=== PATIENT | female | born 1980 | race Caucasian/White ===

== ENCOUNTER → 2021-10-23 09:10 | Outpatient (BNVA) | payer MEDICAID, SELFPAY | PROVIDERS: PCP Family Medicine; Visit Provider Family Medicine Adult Medicine | DX: B35.6 Tinea cruris (principal); R21 Rash and other nonspecific skin eruption | CPT/HCPCS: 87070; 87075; 87081; 87205 ==

== ENCOUNTER 2022-01-05 07:54 | Emergency (ER) | payer MEDICAID, SELFPAY ==
[2022-01-05 08:21] VITALS: BP 126/83; PULSE 73; RESP 16; TEMP 36.6; O2SAT 98; BMI 28.3
--- NOTE | 2022-01-05 08:24 | XR_ITS ---
WS: [id number] LEFT FOOT: 2 VIEW(S) TECHNIQUE: AP and lateral. HISTORY: L-foot injury. R/O FB COMPARISON: None available. No acute fracture or dislocation. Normal tarsal/metatarsal alignment. Extensive soft tissue edema surrounding the foot greatest around the metatarsals. No foreign body is identified and no soft tissue tract with air. XR/XR foot LT 2V [id number] IMPRESSION: 1. No radiopaque foreign body LEFT foot. 2. Large amount of soft tissue edema surrounding the LEFT foot.
--- NOTE | 2022-01-05 09:01 | W.ED.EXTPRO ---
HPI - Extremity Problem General: Chief complaint: Extremity Injury, Lower Stated complaint: left foot injury Time Seen by Provider: 01/05/22 07:56 Source: patient Mode of arrival: ambulatory Limitations: no limitations History of Present Illness: Patient is a 41-year-old female who presents to ED today with complaints of a plantar puncture wound that occurred 3 days ago after stepping on a piece of welding wire. Patient states over time foot has become increasingly sore and she has noticed a small amount of redness and swelling. Patient's tetanus is not up-to-date. MD Complaint: extremity pain and extremity swelling Onset (ago): day(s) Pain Consistency: constant Location: left and lower extremity Associated symptoms: Reports no associated symptoms; Deny fever(s) or rash Review of Systems Const: Denies: fever(s), chills, body aches, fatigue or malaise GI: Denies: nausea or vomiting Musc: Reports: extremity pain and extremity swelling; Denies: neck pain, back pain, joint pain or joint swelling Skin/Breast: Denies: rash Neuro: Denies: numbness in extremities, weakness in extremities or sensory changes PFSH ED PFSH: Medical History Rash in adult Tinea cruris Social History Smoking and tobacco status: never smoked Physical Exam Const: COMMON NORMALS: no acute distress, no limitations, alert and well nourished GENERAL APPEARANCE: cooperative ORIENTATION/CONSCIOUSNESS: Yes awake, Yes oriented to person, Yes oriented to place and Yes oriented to time Extremity: COMMON NORMALS: capillary refill normal, no joint enlargement and no calf tenderness GENERAL: Yes normal exam except as noted LEFT LOWER EXTREMITY: Yes foot & digits OTHER: pt does have a small amount of swelling/erythema to dorsal distal foot; no lymphangitic streaking; she has no swelling, drainage, erythema to plantar aspect of her foot or surrounding the puncture wound Feet Bottom: 1. very small 2mm puncture wound w/o swelling/drainage/erythema Neuro: COMMON NORMALS: moves all extremities, no focal motor deficits and no sensory deficits noted SENSORIUM/ORIENTATION: Yes alert, Yes oriented to person, Yes oriented to place and Yes oriented to time Skin: NARRATIVE SKIN EXAM: see diagram above Course Vital Signs: Vital signs: Vital Signs Temperature 97.9 F 01/05/22 08:21 Pulse Rate 73 01/05/22 08:21 Respiratory Rate 16 01/05/22 08:21 Blood Pressure 126/83 01/05/22 08:21 Pulse Oximetry 98 01/05/22 08:21 MDM - Extremity (Nontraumatic) Medical Decision Making XR negative. Tetanus updated. She was given IM Ancef prior to DC. Will place on cipro/keflex for pseudomonas/staph coverage. Recommend follow up with PCP. Return to ED precautions given. Lab Data Radiology Impressions Foot X-Ray 01/05/22 08:24 IMPRESSION: 1. No radiopaque foreign body LEFT foot. 2. Large amount of soft tissue edema surrounding the LEFT foot. Discharge Plan Discharge Patient Disposition: Home Clinical Impression: Cellulitis of left foot Puncture wound of foot Qualifiers: Encounter type: initial encounter Laterality: left Qualified Code(s): S91.332A - Puncture wound without foreign body, left foot, initial encounter Condition: Stable Prescriptions: New Cipro 500 mg tablet 500 mg PO Q12H Qty: 14 0RF cephalexin 500 mg capsule 500 mg PO Q6H 7 Days Qty: 28 0RF No Action miconazole nitrate 2 % cream 1 applic topical BID Qty: 30 0RF Rx Instructions: Apply for at least 2 weeks twice a day and may need to repeat. Discharge Orders: Discharge ED (Routine); Ordered 01/05/22 Ordered By: Zulay Snyder Referrals: Olive Monsivais DO [Primary Care Provider] - Patient Instructions: Puncture Wound (DC), Cellulitis (ED) Activity Restrictions/Additional Instructions: You need to follow-up with your primary care provider in 2 to 3 days for reevaluation. Begin your antibiotics immediately. You need to return to the emergency department sooner for worsening redness, swelling, red streaking up your leg, worsening pain, fevers, or any other concerns you may have. I hope you begin to feel better soon. Coding Level of Care Code ED Priming Machine Operator for Mike Fwd Exam Expanded Problem Focused
[2022-01-05] MEDS: tetanus-dipt-pertussis 0.5 mL SDV IM (09:11)
[2022-01-05] MEDS: ceFAZolin 1,000 mg SDV 1000 MG IM (09:25)
== END 2022-01-05 09:34 | disposition home or self-care (01) ==
PROVIDERS: Emergency Provider Physician Assistant; PCP Family Medicine
DX: S91.332A Puncture wound without foreign body, left foot, initial encounter (principal); L03.116 Cellulitis of left lower limb; W26.8XXA Contact with other sharp object(s), not elsewhere classified, initial encounter; Z23 Encounter for immunization
CPT/HCPCS: 73620; 90471; 90715; 96372; 99284; J0690

== ENCOUNTER → 2022-04-27 14:32 | Outpatient (BNVA) | payer MEDICAID, SELFPAY | PROVIDERS: PCP Family Medicine; Visit Provider Internal Medicine Cardiovascular Disease | DX: I45.10 Unspecified right bundle-branch block (principal); R01.1 Cardiac murmur, unspecified; R06.09 Other forms of dyspnea; Z87.891 Personal history of nicotine dependence | CPT/HCPCS: 93005; 99204 ==

== ENCOUNTER 2022-05-18 13:12 | Outpatient (CLI) | payer MEDICAID, SELFPAY ==
--- NOTE | 2022-05-18 13:21 | MM_ITS ---
WS: [id number] BILATERAL 3D TOMOSYNTHESIS DIGITAL DIAGNOSTIC MAMMOGRAPHY WITH CAD CLINICAL INFORMATION: LUMP HISTORY: Bilateral nipple soreness COMPARISON: None. TECHNIQUE: Bilateral CC, MLO, and ML views. FINDINGS: Scattered fibroglandular densities bilaterally. A few tiny incidental punctate calcifications. No suspicious focal mass, asymmetry, calcifications, or architectural distortion. No evidence of shmuel gnancy. ULTRASOUND BREAST BILATERAL TECHNIQUE: Ultrasound bilateral breast focused area of concern. CLINICAL INFORMATION: LUMP COMPARISON: None. FINDINGS: RIGHT BREAST: Ultrasound at the areola in the area of concern. Normal underlying parenchymal tissue. No cystic or solid lesions. No suspicious lesions to target for biopsy. LEFT BREAST: Ultrasound at the areola in the area of concern. Normal underlying parenchymal tissue. N o cystic or solid lesions. No suspicious lesions to target for biopsy. MM/[place] [id number] IMPRESSION: BI-RADS: 2-Benign FOLLOW UP: 1 Year Follow-up Recommend return to annual screening mammography.
== END 2022-05-18 13:13 | disposition home or self-care (01) ==
LOC: RAD 13:12
PROVIDERS: PCP Registered Nurse; Visit Provider Registered Nurse
DX: N63.41 Unspecified lump in right breast, subareolar (principal); N63.42 Unspecified lump in left breast, subareolar
CPT/HCPCS: 76642; 77062; G0279

== ENCOUNTER 2024-03-31 16:43 | Emergency (ER) | payer MEDICAID, SELFPAY ==
[2024-03-31 16:56] VITALS: BP 125/85; PULSE 86; RESP 17; TEMP 36.9; O2SAT 96; BMI 29.2
--- NOTE | 2024-03-31 17:05 | XRR_ITS ---
PROCEDURE INFORMATION: Exam: XR Left Hand Exam date and time: 03/31/2024 5:19 PM Age: 43 years old Clinical indication: Injury or trauma; Other: Bite; Hand; Left; Additional info: Injury, dog bite today on left 2nd digit TECHNIQUE: Imaging protocol: Radiologic exam of the left hand. Views: 3 or more views. COMPARISON: No relevant prior studies available. FINDINGS: Bones/joints: Normal. Soft tissues: Normal. XR/XR hand LT min 3V* [id number] IMPRESSION: No acute findings.
--- NOTE | 2024-03-31 17:56 | ED_ITS ---
HPI - Animal Bite General: Chief Complaint: Animal Bite Stated Complaint: Dog Bite left hand Time Seen by Provider: 03/31/24 17:41 Source: patient Mode of arrival: ambulatory Limitations: no limitations History of Present Illness: Patient presents emergency department today for evaluation and treatment of injury sustained to 3 fingers on the left hand by a dog. Patient states she was at her place of employment. She reports that they had just recently put a new gate/fence up and while she was out with one of the other dogs, had a larger dog-[place], that got underneath the gate. States it began to attack the dog that was with her. During the time that the 2 dogs were fighting, patient's left thumb, index finger, and third digit were bitten. Patient states she continued her workday but, is having increased pain and swelling-especially in the index finger and comes in for evaluation. States her last tetanus immunization was quite a while ago. 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 Related Data Previous Rx's Medication Instructions Recorded amoxicillin 875 mg-potassium 1 tab PO BID 10 days #20 tabs 03/31/24 clavulanate 125 mg tablet Allergies Allergy/AdvReac Type Severity Reaction Status Date / Time tramadol Allergy Unknown Verified 03/31/24 17:02 Review of Systems General: Reports: 10 or more systems reviewed and unremarkable except in HPI and below PFSH ED PFSH: Medical History Rash in adult Tinea cruris Family History Mother Bleeding disorder Clotting disorder Lung disease Grandmother Dementia Denies family history of Diabetes CAD (coronary artery disease) Chronic kidney disease (CKD) Suicide Anesthesia complication Cancer Stroke Social History Smoking and tobacco/nicotine status: former use of tobacco/nicotine Alcohol intake: never Substance/Drug Use: former Physical Exam Const: COMMON NORMALS: patient oriented x3 and alert OTHER: Patient is pleasant and answers her own history but does seem a little shaken and upset. HENMT: COMMON NORMALS: normocephalic, atraumatic and hearing grossly normal bilaterally HEAD & SCALP: normocephalic and atraumatic Eye: COMMON NORMALS: Equal, round and reactive pupils present, EOMs intact bilaterally and conjunctivae normal CONJUNCTIVA: Yes conjunctivae normal PUPIL: Yes Equal, round and reactive pupils present Neck/C-Spine: COMMON NORMALS: full ROM and no JVD Lymph: LYMPHATIC: no lymphadenopathy noted Resp: COMMON NORMALS: normal respiratory effort, No retractions and No use of accessory muscles Cardio: COMMON NORMALS: no JVD and regular rate RATE: regular rate Extremity: NARRATIVE EXTREMITY EXAM: Patient with ability to flex and extend the fingers of the left hand though there is decreased mobility in the index finger due to pain. Neuro: COMMON NORMALS: patient oriented x3 SENSORIUM/ORIENTATION: Yes alert Psych: COMMON NORMALS: mental status grossly normal, Normal thought process present, cooperative and normal affect THOUGHT PROCESS: Normal thought process present Skin: COMMON NORMALS: no rashes or lesions noted and turgor normal NARRATIVE SKIN EXAM: Patient has a U-shaped flap wound to the finger pad of the left thumb approx 0 .75cm in total length. No active bleeding noted. Minimally swollen. Patient then has injury sustained to the left index finger along the lateral side of the PIP joint. There is a small spot of oozing blood noted to this area. wound is non-linear and cannot be measured but seems to affect only approximately half of the PIP joint. Index finger in general is swollen with some mild erythema deve loping around the PIP joint. Patient has a single puncture wound noted just proximal to the lateral PIP of the left third digit as well. Approx 0.25cm in diameter. No signs of injury to the nails. GENERAL SKIN EXAM: no rashes or lesions noted and turgor normal Course Vital Signs: Vital signs: Vital Signs Temperature 98.4 F 03/31/24 16:56 Pulse Rate 86 03/31/24 16:56 Respiratory Rate 17 03/31/24 16:56 Blood Pressure 125/85 03/31/24 16:56 Pulse Oximetry 96 03/31/24 16:56 Oxygen Delivery Me thod Room Air 03/31/24 16:56 MDM - Animal Bite Medical Decision Making Patient presents emergency department today for evaluation treatment of injury sustained after being bitten by a dog while she was at work. Patient's tetanus immunization was updated today. While the patient indicated she had cleaned the wound with peroxide, we did have the nurse clean the wounds with Hibiclens and c over with Xeroform gauze, Telfa, and Coban wrap. My personal interpretation of the x-ray today shows no signs of any underlying bony abnormality or concerns for fracture but, given the nature of the injury, will put a request in to have her seen and followed up with orthopedics/hands to make sure patient is able to heal and retain all function and mobility of the fingers. Patient will be started on Augmentin today. Encouraged her to take her first dose of medication as soon as she is able to get it from the pharmacy. She can use Tylenol and ibuprofen for discomfort during this time. Informational handout about animal bites provided to the patient. Wound care instructions given. Patient verbalizes understanding and agreement to treatment plan. Differential Diagnosis Likely bite by animal and dog bite; Unlikely cat bite or rabies contact XR interpretation done by ED provider, pending radiology final review ED provider radiology interpretation(s): No signs of any acute fractures to the left thumb, index finger, or third digit. Discharge Plan Discharge Patient Disposition: Home Clinical Impression: Dog bite, Puncture wound of finger of left hand, Laceration of left index finger w/o foreign body w/o damage to nail, Laceration of left thumb without foreign body without damage to nail, More than 5 years since last tetanus immunization Condition: Stable Prescriptions: New amoxicillin-pot clavulanate 875-125 mg tablet 1 tab PO BID 10 Days Qty: 20 0RF Discharge Orders: Discharge ED (Routine); Ordered 03/31/24 Ordered By: Nkechi Day Referrals: Catrina Le [Primary Care Provider] - Discharge Diet: Usual diet Discharge Activity: Limit activity as instructed Patient Instructions: Animal Bite (ED) Activity Restrictions/Additional Instructions: On examination, you have wounds to your thumb, index finger, and third finger. All of these wounds need to be washed twice a day of warm water mild soap and would recommend keeping them covered with bandaging. As we discussed here in the emergency department, animal wounds such as dog bites are not closed with suturing or glue as the risk of infection is very high. We are starting you on a special antibiotic to cover for bacteria which is often introduced with dog bites. This medication can cause an upset stomach so I would recommend taking the medicine with a meal or snack. I also recommend rotating Tylenol and ibuprofen to help with pain as your fingers may be extremely tender for several days. Id recommend ice packs for 15-20 min every couple of hours as well. Luckily, the x-rays show no signs of acute fracture in the areas where you were bitten. Still, I have put in a request for you to have follow-up with an orthopedist to make sure you are able to return to full mobility from the injury. At this time, I do not think we need to start any type of rabies vaccinations as these are known animals to you and you are aware of the farm owner operator and the farm owner operator can be put into contact with animal control if there are any questions. Carefully watch for any onset of fever, streaking redness up the hand, significant and sudden onset of worsening swelling or inability to feel the tips of your fingers. If these occur you need to be seen sooner than a follow-up appointment with orthopedics. Coding Level of Care Code ED Manufacturing Quality Inspector for Mike Guzman
[2024-03-31] MEDS: tetanus-dipt-pertussis 0.5 mL SDV IM (18:11)
[2024-03-31 18:33] VITALS: BP 112/85; PULSE 89; RESP 16; O2SAT 97
--- NOTE | 2024-04-03 08:35 | DCPLANNER ---
message send to ortho for er f/u
== END 2024-03-31 18:50 | disposition home or self-care (01) ==
PROVIDERS: Emergency Provider Physician Assistant; PCP Registered Nurse
DX: S61.251A Open bite of left index finger without damage to nail, initial encounter (principal); S61.052A Open bite of left thumb without damage to nail, initial encounter; S61.253A Open bite of left middle finger without damage to nail, initial encounter; W54.0XXA Bitten by dog, initial encounter; Z87.891 Personal history of nicotine dependence; Y99.0 Civilian activity done for income or pay; Z23 Encounter for immunization
CPT/HCPCS: 73130; 90471; 90715; 99283

== ENCOUNTER 2024-08-24 11:12 | Outpatient (CLI) | payer MEDICAID, SELFPAY ==
--- NOTE | 2024-08-24 11:20 | XR_ITS ---
WS: [id number] Lumbar spine, AP and lateral views, 08/24/2024 Clinical Data: LOW BACK PAIN Comparison: None. Findings: No compression fractures or subluxation is seen. There is degenerative disc narrowing at L2-L3 with anterior spurring. The transverse processes and SI joints are normal. There are right upper quadrant cholecystectomy clips. XR/XR lumbar spine 2-3V* [id number] Impression: Disc narrowing at L2-L3 with anterior spurring.
--- NOTE | 2024-08-24 11:20 | XR_ITS ---
WS: [email or web address] Right knee, 3 views, 08/24/2024 Clinical Data: CHRONIC PAIN OF RIGHT KNEE Comparison: None. Findings: No fractures or dislocations are seen. The joint spaces are normal. The patella is intact. The soft tissues are unremarkable. XR/XR knee RT 3V* [id number] Impression: Negative right knee.
--- NOTE | 2024-08-24 11:20 | XR_ITS ---
WS: [email or web address] Right hip, 2 views, AP pelvis, 08/24/2024 Clinical Data: CHRONIC RIGHT HIP PAIN Comparison: None. Findings: No fractures or dislocations are seen. The hips show no erosion, sclerosis, narrowing, cyst formation or fragmentation of the femoral heads.. The soft tissues are not remarkable. The adjacent pelvis is normal. XR/XR hip RT 2-3V wo/w pel* [id number] Impression: Negative pelvis and right hip.
--- NOTE | 2024-08-24 11:20 | XR_ITS ---
WS: [email or web address] Right hand, 3 views, 08/24/2024 Clinical Data: CHRONIC PAIN OF RIGHT HAND Comparison: None. Findings: No fractures or dislocations are seen. The soft tissues are unremarkable. The joint spaces are normal XR/XR hand RT min 3V* [id number] Impression: Negative right hand.
== END 2024-08-24 11:13 | disposition home or self-care (01) ==
PROVIDERS: PCP Registered Nurse; Visit Provider Nurse Practitioner Family
DX: M54.41 Lumbago with sciatica, right side (principal); G89.29 Other chronic pain; M79.641 Pain in right hand; M25.561 Pain in right knee; M25.551 Pain in right hip; M51.369 Other intervertebral disc degeneration, lumbar region without mention of lumbar back pain or lower extremity pain; M25.78 Osteophyte, vertebrae; Z90.49 Acquired absence of other specified parts of digestive tract
CPT/HCPCS: 72100; 73130; 73502; 73562

== ENCOUNTER → 2024-09-14 15:01 | Outpatient (BNVA) | payer MEDICAID, SELFPAY | PROVIDERS: PCP Registered Nurse; Visit Provider Orthopaedic Surgery | DX: M54.9 Dorsalgia, unspecified (principal) | CPT/HCPCS: 72110; 99204 ==

== ENCOUNTER → 2024-09-18 11:00 | Outpatient (BNVA) | payer MEDICAID, SELFPAY | PROVIDERS: PCP Registered Nurse; Visit Provider Orthopaedic Surgery | DX: M25.521 Pain in right elbow (principal) | CPT/HCPCS: 73080; 99214 ==

== ENCOUNTER 2024-09-19 08:00 | Outpatient (CLI) | payer MEDICAID, SELFPAY ==
--- NOTE | 2024-09-19 08:00 | MR_ITS ---
WS: [id number] MRI PELVIS WITHOUT CONTRAST. COMPARISON: Radiographs RIGHT hip 08/24/2024 Multiplanar, multisequence imaging is performed without contrast. History: RIGHT hip pain after being knocked down by dog. No acute marrow edema or fractures. Hips are normally seated within the acetabulum. Symmetric amount of fluid surrounding the femoral heads. No sacral insufficiency fracture. No edema within the pubic rami or widening of the symphysis pubis. Normal appearance of the soft tissues. Small foraminal osteop hytes at L4-5 and L5-S1. There is very slight bony hypertrophy of the RIGHT acetabulum with lateral extension. There is an associated subchondral cyst within the far lateral acetabulum. Subchondral cyst measures approximately 3 mm and appears separate from the labrum. I suspect this is a degenerative cyst. This is asymmetric to the LEFT. MR/MR pelvis wo con* [id number] IMPRESSION: 1. No fracture or marrow edema. 2. No pubic rami or sacral abnormalities. 3. Mild osteophytic extension of the RIGHT acetabulum with a tiny associated s ubchondral cyst. 4. No joint effusion.
== END 2024-09-19 08:01 | disposition home or self-care (01) ==
PROVIDERS: PCP Registered Nurse; Visit Provider Orthopaedic Surgery
DX: R10.2 Pelvic and perineal pain (principal); W54.1XXA Struck by dog, initial encounter; R93.7 Abnormal findings on diagnostic imaging of other parts of musculoskeletal system; M25.78 Osteophyte, vertebrae; M89.38 Hypertrophy of bone, other site; M85.68 Other cyst of bone, other site
CPT/HCPCS: 72195

== ENCOUNTER 2024-09-22 14:23 | Outpatient (CLI) | payer MEDICAID, SELFPAY ==
--- NOTE | 2024-09-22 14:30 | MR_ITS ---
WS: [id number] MRI RIGHT HAND WITHOUT CONTRAST. COMPARISON: Radiograph 08/24/2024 Multiplanar, multisequence imaging is performed without contrast. HISTORY: Injured hand, pain predominantly involving the thumb. There appears thin linear area of increased T2 signal at the base of the first metacarpal of uncertain significance. There is no additional edema. No significant change in alignment at the first carpometacarpal joint. The ulnar and radial collateral ligaments are intact. No soft tissue edema. There is very slight subluxation at the first metacarpophalangeal joint. There is no adjacent soft tissue edema. The visualized ligaments are intact. No displacement of the A1 or A2 wendy system associated with the first digit. The ulnar collateral ligament appears slightly redundant but intact. The remaining hand demonstrates no abnormalities. No edema or soft tissue masses. MR/MR hand RT wo con* [id number] IMPRESSION: 1. Mild subluxation at the first metacarpal phalangeal joint. This may be due to mild laxity of the ulnar collateral ligament. No full-thickness tear within the ligament. 2. No focal marrow edema. There is a tiny amount of increased T2 signal at the base of the first metacarpal. This does not appear to be a fracture or related to an injury.
== END 2024-09-22 14:24 | disposition home or self-care (01) ==
LOC: RAD 14:24
PROVIDERS: PCP Registered Nurse; Visit Provider Orthopaedic Surgery
DX: S63.111A Subluxation of metacarpophalangeal joint of right thumb, initial encounter (principal); X58.XXXA Exposure to other specified factors, initial encounter
CPT/HCPCS: 73218

== ENCOUNTER → 2024-10-12 15:08 | Outpatient (BNVA) | payer MEDICAID, SELFPAY | PROVIDERS: PCP Registered Nurse; Visit Provider Orthopaedic Surgery | DX: M25.519 Pain in unspecified shoulder (principal) | CPT/HCPCS: 99213 ==